=== PATIENT | female | born 1950 | race Caucasian/White ===

== ENCOUNTER → 2017-11-08 | Outpatient (CLI) | payer OTHER | PROVIDERS: ATTEND Physician Assistant | DX: M24.851 Other specific joint derangements of right hip, not elsewhere classified (principal); M24.852 Other specific joint derangements of left hip, not elsewhere classified ==

== ENCOUNTER → 2018-01-11 | Outpatient (CLI) | payer OTHER | LOC: BHFA 14:00 | PROVIDERS: ATTEND Internal Medicine Cardiovascular Disease | DX: Z01.818 Encounter for other preprocedural examination (principal) ==

== ENCOUNTER → 2018-01-12 | Outpatient (CLI) | payer OTHER | LOC: FIMAGING 16:13 | PROVIDERS: ATTEND Orthopaedic Surgery | DX: Z01.818 Encounter for other preprocedural examination (principal); M16.12 Unilateral primary osteoarthritis, left hip ==

== ENCOUNTER 2018-02-04 07:54 | Inpatient (IN) | payer OTHER ==
--- NOTE | 2018-02-04 07:14 | PDHPUP ---
History & Physical Update H&P update statement: This history and physical update is based on an assessment of the patient which was completed after admission or registration (within 24 hours), but prior to the surgery/procedure. H&P update: H&P reviewed & patient examined, no change in patient's condition since H&P completed
[~2018-02-04 07:54] MED LIST: ROPIVACAINE 0.2% 80 MG, EPINEPHrine 0.2 MG, KETOROLAC TROMETHAMINE 30 MG in SYRINGE 0 ML IU ONE; TRANEXAMIC ACID 3,000 MG in NS (SYRINGE) 50 ML IRR ONE; TRANEXAMIC ACID 3,000 MG/50 ML BAG IRR ONE
[2018-02-04] MEDS ORDERED: FAMOTIDINE 20 MG TAB PO ONE (08:19)
[2018-02-04] MEDS ORDERED: DEXAMETHASONE 4 MG/ML VIAL IVP ONE (08:19)
[2018-02-04] MEDS ORDERED: ACETAMINOPHEN 325 MG TAB PO ONE (08:19)
[2018-02-04] MEDS ORDERED: ceFAZolin 2 GM/DEXTROSE 100 ML IV ONE (08:19)
--- NOTE | 2018-02-04 08:55 | PDANEPAE ---
ANE Past Medical History - Cardiovascular History Hx Hypertension: No Hx Arrhythmias: No Hx Chest Pain: No Hx Coronary Artery / Peripheral Vascular Disease: No Hx CHF / Valvular Disease: No Hx Palpitations: No Cardiovascular History Comment: RBBB. Dilated aortic root (<5cm) - Pulmonary History Hx COPD: No Hx Asthma/Reactive Airway Disease: No Hx Recent Upper Respiratory Infection: No Hx Oxygen in Use at Home: No Hx Sleep Apnea: No Sleep Apnea Screening Result - Last Documented: Negative - Neurologic History Hx Cerebrovascular Accident: No Hx Seizures: No Hx Dementia: No - Endocrine History Hx Diabetes: No Hypothyroid: No Hyperthyroid: No Obesity: no - Renal History Hx Renal Disorders: No - Liver History Hx Hepatic Disorders: No - Neurological & Psychiatric Hx Hx Neurological and Psychiatric Disorders: No - Cancer History Hx Cancer: No - Congenital Disorder History Hx Congenital Disorders: Yes Congenital History Comment: RBBB - GI History GERD: no Hx Gastrointestinal Disorders: No - Other Health History Other Health History: GLAUCOMA - Chronic Pain History Chronic Pain: Yes (BILAT HIPS,LOWER BACK) - Surgical History Prior Surgeries: none in last 10yrs ANE Review of Systems Review of Systems: - Exercise capacity Exercise capacity: >=4 METS METS (RN): 5 METS ANE Patient History - Allergies Allergies/Adverse Reactions: No Known Allergies Allergy (Verified 01/14/18 10:12) - Home Medications Home Medications: Acetaminophen [Tylenol 325mg (*)] 325 - 650 mg PO Q6 PRN 01/13/18 [Last Taken 09:00] Latanoprost 0.005% [Xalatan 0.005% (*)] 1 drops EACHEYE HS 01/13/18 [Last Taken 02/03/18 22:00] Meloxicam [Mobic 15 mg] 15 mg PO DAILY 01/13/18 [Last Taken 2 Weeks Ago ~] Multivitamins [Multivitamin (*)] 1 each PO DAILY 01/13/18 [Last Taken 2 Weeks Ago ~01/21/18] - NPO status NPO Since - Liquids (Date): 02/04/18 NPO Since - Liquids (Time): 07:00 NPO Since - Solids (Date): 02/03/18 NPO Since - Solids (Time): 22:00 - Anes Hx Anes Hx: post operative nausea and vomiting - Smoking Hx Smoking Status: Never smoked Marijuana use: No - Alcohol Use Alcohol Use: Occasionally - Family Anes Hx Family Anes Hx: neg - N/A Family Hx Anesthesia Complications: father had vomiting issues ANE Labs/Vital Signs - Vital Signs Blood Pressure: 135/94 Heart Rate: 72 Respiratory Rate: 16 O2 Sat (%): 94 Height: 172.72 cm Weight: 83.915 kg ANE Physical Exam - Airway Neck exam: FROM Mallampati Score: Class 2 Mouth exam: normal dental/mouth exam - Pulmonary Pulmonary: no respiratory distress, no rales or rhonchi, clear to auscultation - Cardiovascular Cardiovascular: regular rate and rhythym, no murmur, rub, or gallop - ASA Status ASA Status: II ANE Anesthesia Plan Anesthesia Plan: MAC, spinal Total IV Anesthesia: No
[2018-02-04] MEDS ORDERED: LR 1,000 ML IV ONE (08:57)
[2018-02-04] MEDS ORDERED: fentaNYL 100 MCG/2 ML INJ ONE (09:31)
[2018-02-04] MEDS ORDERED: PROPOFOL/EMULSION 500 MG/50 ML BOTTLE IV ONE ×2 (09:31→10:25)
[2018-02-04] MEDS ORDERED: LIDOCAINE 2% 5 ML SDV ONE (09:47)
[2018-02-04] MEDS ORDERED: ePHEDrine SULFATE 25 MG/5 ML SYR ONE (10:12)
[2018-02-04] MEDS ORDERED: NALOXONE HCL 0.4 MG/ML INJ IVP PRN (10:21)
[2018-02-04] MEDS ORDERED: LR 500 ML IV PRN (10:21)
[2018-02-04] MEDS ORDERED: PROMETHAZINE HCL 25 MG/ML INJ IVP PRN ×2 (10:21→11:04)
[2018-02-04] MEDS ORDERED: ACETAMINOPHEN 500 MG TAB PO PRN (10:21)
[2018-02-04] MEDS ORDERED: PHENYLEPHRINE HCL 100 MCG/ML SYR IVP PRN (10:21)
[2018-02-04] MEDS ORDERED: fentaNYL 100 MCG/2 ML INJ IVP PRN (10:21)
[2018-02-04] MEDS ORDERED: oxyCODONE IR 5 MG TAB PO PRN (10:21)
[2018-02-04] MEDS ORDERED: ONDANSETRON 4 MG/2 ML VIAL IVP PRN ×2 (10:21→11:04)
[2018-02-04] MEDS ORDERED: HYDROCODONE/APAP 5/325 TAB PO PRN (10:21)
[2018-02-04] MEDS ORDERED: PHENYLEPHRINE HCL 100 MCG/ML SYR ONE (10:31)
[2018-02-04] MEDS ORDERED: MAGNESIUM HYDROXIDE 30 ML UDCUP PO PRN (11:04)
[2018-02-04] MEDS ORDERED: ONDANSETRON DISINTEGRATING 4 MG TAB PO PRN (11:04)
[2018-02-04] MEDS ORDERED: BISACODYL 10 MG SUPP PR PRN (11:04)
[2018-02-04] MEDS ORDERED: DIPHENOXYLATE/ATROPINE LOMOTIL 1 TAB PO PRN (11:04)
[2018-02-04] MEDS ORDERED: diphenhydrAMINE 25 MG CAP PO PRN (11:04)
[2018-02-04] MEDS ORDERED: LACTULOSE 20 GM/30 ML UDCUP PO PRN (11:04)
[2018-02-04] MEDS ORDERED: PROMETHAZINE HCL 25 MG SUPPR PR PRN (11:04)
[2018-02-04] MEDS ORDERED: METOCLOPRAMIDE 10 MG/2 ML VIAL IVP PRN (11:04)
[2018-02-04] MEDS ORDERED: POLYETHYLENE GLYCOL 3350 17 GM PKT PO PRN (11:04)
[2018-02-04] MEDS ORDERED: TEMAZEPAM 15 MG CAP PO PRN (11:04)
--- NOTE | 2018-02-04 11:04 | POSTOPPROG ---
Post Op Note Date of Operation: 02/04/18 Surgeon: Lino Espana Top Taper Machine: lam espana Anesthesiologist: dr. perales Anesthesia: Spinal Pre-op Diagnosis: left hip OA Post-op Diagnosis: same Indication: left hip pain Procedure: L JOCELINE ant approach Findings: severe hip OA Inf/Abcess present in the surg proc area at time of surgery?: No EBL: 100-500
[2018-02-04] MEDS ORDERED: LR 1,000 ML IV SCH (11:30)
[2018-02-04] MEDS ORDERED: oxyCODONE IR 5 MG TAB ONE (11:56)
--- NOTE | 2018-02-04 12:42 | POSTANESTH ---
Post Anesthetic Evaluation Cardiovascular Status: Normal, Stable Respiratory Status: Normal, Stable Level of Consciousness/Mental Status: Can Participate in Eval Pain Control: Adequate, Prn Tx Ordered Nausea/Vomiting Control: Adequate, Prn Tx Ordered Complications Possibly Related to Anesthesia: None Noted
[2018-02-04] MEDS: ACETAMINOPHEN 325 MG TAB PO SCH ×2 (13:34→17:21)
--- NOTE | 2018-02-04 13:46 | PDMN ---
Medical Necessity Medical necessity: [facility] IP only surgery; cpt 06257 L JOCELINE ([id number])
[2018-02-04] MEDS: ceFAZolin 2 GM/DEXTROSE 100 ML IV SCH (15:38)
[2018-02-04] MEDS: CYCLOBENZAPRINE 10 MG TAB PO PRN (15:38)
[2018-02-04] MEDS ORDERED: LATANOPROST 0.005% 2.5 ML OPHT DROPS EACHEYE SCH (21:00)
[2018-02-04] MEDS: SENNOSIDES/DOCUSATE SODIUM TAB PO SCH (21:32)
[2018-02-04] MEDS: oxyCODONE IR 5 MG TAB PO PRN (21:33)
[2018-02-04] MEDS: ASPIRIN 81 MG CHEWABLE TAB PO SCH (21:33)
[2018-02-04] MEDS: FAMOTIDINE 20 MG TAB PO SCH (21:34)
[2018-02-05] MEDS: CYCLOBENZAPRINE 10 MG TAB PO PRN (00:36)
[2018-02-05] MEDS: ACETAMINOPHEN 325 MG TAB PO SCH ×2 (00:36→05:11)
[2018-02-05] MEDS: ceFAZolin 2 GM/DEXTROSE 100 ML IV SCH (00:36)
[2018-02-05] MEDS: oxyCODONE IR 5 MG TAB PO PRN ×2 (05:12→10:09)
[2018-02-05] MEDS: ASPIRIN 81 MG CHEWABLE TAB PO SCH (08:11)
[2018-02-05] MEDS: SENNOSIDES/DOCUSATE SODIUM TAB PO SCH (08:11)
[2018-02-05] MEDS: FAMOTIDINE 20 MG TAB PO SCH (08:11)
[2018-02-05 09:17] VITALS: BP 116/66
--- NOTE | 2018-02-05 10:51 | GOP ---
[f rep st] OPERATIVE REPORT DATE OF OPERATION: 02/04/2018 SURGEON: Ban Buchanan MD BRAND MARKETING MANAGER: NENITA Clifton ANESTHESIA: Spinal. PREOPERATIVE DIAGNOSIS: Left hip osteoarthrosis. POSTOPERATIVE DIAGNOSIS: Left hip osteoarthrosis. PROCEDURE PERFORMED: Left total hip arthroplasty. FINDINGS: ESTIMATED BLOOD LOSS: 200 cc. INDICATIONS: The patient has progressively worsening arthritis of the hip which has failed medical m anagement. The patient understands the treatment options including continued non-operative care and has selected surgical intervention. The patient has decided to undergo total hip arthroplasty via th e direct anterior approach, understanding the risks of the procedure including, but not limited to, n eurovascular injury, infection, persistent pain, component wear and loosening, deep venous thrombosis , pulmonary embolism, limb length inequality, hip instability (including dislocation), and intra-oper ative fractures. DESCRIPTION OF PROCEDURE: After proper identification of the patient including verification and brittany ing the surgical site, the patient was brought to the operating room and placed in the supine positio n. All bony prominences were well padded. Anesthesia was induced without complication and intraveno us prophylactic antibiotics were administered prior to skin incision. The operative leg was placed in the Trumpf Arch table extension and the well leg in a Yellofin leg ho lder. The patient was prepped and draped in the usual sterile fashion. The C-arm was draped for int ra-operative fluoroscopy to check acetabular position, femoral component position including leg lengt h and femoral offset. Attention was then drawn to surgical exposure of the hip. An incision was made with a #10 [place] r blade starting 3 cm lateral and 3 cm distal to the anterior superior iliac spine measuring 8-10 cm and coursing distally toward the greater trochanter. The skin and subcutaneous tissues were divided sharply down to the fascia rosa elena. The fascia rosa elena was incised in line with the skin incision exposing the underlying tensor fascia rosa elena muscle. The muscle was bluntly elevated from the fascia and the f irst extracapsular Cobra retractor was placed laterally at the junction of the superior femoral neck and greater trochanter. The lateral femoral circumflex vessels were identified, cauterized, and divi ded with the Aquamantys bipolar cautery. The deep investing fascia of the TFL was divided to allow p neelima mobilization of the muscle preventing damage during the retraction. The reflected head of the rectus femoris muscle was elevated off the anterior hip capsule and a medial Cobra retractor was plac ed just proximal to the lesser trochanter. The anterior capsulotomy was made sharply from the superolateral acetabulum to the saddle junction of the superior femoral neck and greater trochanter, then coursing inferomedial towards the lesser troc hanter. The retractors were then placed in the intracapsular position for femoral neck osteotomy. C orresponding to pre-operative templating, the osteotomy was made with the oscillating saw carefully p rotecting the greater trochanter and soft tissues. The femoral head was removed from the acetabulum with a corkscrew and confirmed to be severely arthritic with exposed bone, deformity and osteophytes. Similar findings were confirmed in the acetabulum. The Arch table extension was then placed in 40 degrees external rotation. Attention was then drawn to the acetabular preparation. After placement of the anterior and posterio r Cobra retractors outside the labrum and intracapsular, the circumferential labrum was removed sharp ly. The foveal contents were then removed and hemostasis obtained with cautery. The first reamer selected was sized using the removed femoral head. Reaming began with medialization and then commenced in 2 mm increments at 45 degrees of abduction and 15 degrees of anteversion using fluoroscopic navigation. Reaming ceased 1 mm less than the definitive acetabular component and madhuri esponded to the pre-operative templating. The final acetabular component was inserted using fluorosc opy to achieve proper orientation yielding excellent purchase and stability in the acetabulum. The f inal acetabular liner was then placed and its seating confirmed. Attention was then turned to the femur. The Arch table extension was placed in extension and adducti on, delivering the osteotomized femoral neck into the wound. A 2-pronged femoral elevator was placed at the calcar and another at the tip of the greater trochanter. The posterolateral capsule was rele ased with cautery allowing mobilization of the femur lateral and anterior for preparation. The exter nal rotators were visualized and preserved. A curette and rongeur were used to open the starting poi nt for broaching. Serial broaching started with the #0 broach and ended with the broach that exhibit ed excellent fit in the proximal femur. A change in pitch during mallet strikes was accompanied by t he inability to advance the broach any further. The trial reduction was performed and fluoroscopic n avigation was utilized to check limb length. Adjustments were made to equalize limb length according ly. After the final trials were accepted they were removed and the wound was copiously lavaged. The femo ral component was seated to the same depth as the final broach and the femoral head was impacted onto the clean trunnion. The hip was then reduced for the final time and once more fluoroscopy was used to check that limb length equality was achieved. The wound was irrigated and closed in layers, the fascia rosa elena with 2-0 Quill, the subcutaneous tissue with 2-0 Quill, and the skin with Dermabond. Sterile dressings were applied. Final sharps and spon ge counts were accurate. The patient was then transferred to a hospital bed and brought to the [facility] room in stable condition. IMPLANTS: Accolade II size 5 at 132. Acetabular component is 52 mm Trident 2. Liner is a Trident X 3, 36 mm. Head is a Biolox Delta 36 mm, +0. /[id number]/MODL
--- NOTE | 2018-02-05 10:55 | ASMTCMCOM ---
CM Note CM Note Notes: Pt is s/p JOCELINE, PT recommending home w/spouse and f/u w/out pt rehab. No CM needs at this time. Date Signed: 02/05/2018 10:54 AM Electronically Signed By:Shauna Hernandez RN
--- NOTE | 2018-02-05 11:12 | SOAPPROG ---
SOAP Progress Note Assessment/Plan: Assessment: Flavia is doing well POD 1 s/p L JOCELINE pain is well controlled on oral pain meds VTE ppx: recommend ASA 81 mg BID anemia: level expected initially postop. asymptomatic D/C planning: d/c to home pending release from PT Plan: 02/05/18 11:10 Subjective: Flavia is doing well, denies SOB, chest pain and N/V. Objective: Vital Signs Temp Pulse Resp BP Pulse Ox 36.6 C 67 18 116/66 96 02/05/18 08:00 02/05/18 08:00 02/05/18 08:00 02/05/18 08:00 02/05/18 08:00 Laboratory Results 02/05/18 04:27 02/04/18 02/05/18 02/06/18 05:59 05:59 05:59 Intake Total 1950 Output Total 2800 Balance -850 LLE: incision dressing is clean and dry, NVI, +pf/df ICD10 Worksheet Patient Problems: Problems Problem Status Onset Primary localized osteoarthritis of left hip Acute
--- NOTE | 2018-02-10 11:06 | GDS ---
[f rep st] DISCHARGE SUMMARY ADMISSION DIAGNOSIS: Left hip osteoarthritis. DISCHARGE DIAGNOSIS: Left hip osteoarthritis. PROCEDURE: Left total hip arthroplasty. VTE PROPHYLAXIS: Recommend aspirin 81 mg twice a day for 4 weeks. BRIEF DESCRIPTION OF HOSPITAL STAY: Patient was admitted for an elective joint arthroplasty. The pa tere tolerated the procedure well and has passed physical therapy. The patient was given appropriat e antibiotic prophylaxis and venous thromboembolism prophylaxis. The patient's pain was well control led on oral pain medication, patient was holding down food, and had urinated. Decision was made to d ischarge the patient. The patient was given post-operative prescriptions pre-operatively. PLAN: Follow up as scheduled at Dr. Buchanan's office, February 28 at 12:45. /[id number]/MODL
== END 2018-02-05 12:03 | disposition home or self-care (01) | DRG 470 ==
LOC: F3N 07:54
PROVIDERS: ADMIT Orthopaedic Surgery; ATTEND Orthopaedic Surgery
PROC: 0SRB04Z Replacement of Left Hip Joint with Ceramic on Polyethylene Synthetic Substitute, Open Approach (ICD-10-PCS; principal; 2018-02-04 10:15)
DX: M16.12 Unilateral primary osteoarthritis, left hip (principal)
CPT/HCPCS: 97116-GP; 97161-GP; 97165-GO; 97530-GP; G8978-GP-CK; G8979-GP-CI; G8987-GO-CI; G8988-GO-CI; G8989-GO-CI; J0171; J0690; J1100; J1885; J2370; J2704; J2795; J3010

== ENCOUNTER 2018-06-17 11:00 | Inpatient (IN) | payer OTHER ==
--- NOTE | 2018-06-17 07:17 | PDGENHP ---
History and Physical History and Physical: Print Patient Name SARAH MARIE (68yo, F) ID# [id number] Appt. Date/Time 05/30/2018 12: 30PM 1950 Service Dept. MAIN OFFICE Provider BRITANY BUCHANAN PA-C Insurance Med Primary: [place] Insurance # : [id number] Med Secondary: [place]PP[place] Insurance # : [id number] Policy/Group # : [id number] Prescription: DSTPSDIR - Member is eligible. details Chief Complaint Right CBB_discuss right hip surgery pt is here today to discuss right hip surgery. pt states the pain is worse, and sitting makes it worse. Patient's Care Team Primary Care Provider: REDD VANEGAS MD: [id number] [place] [address], Ph [phone], Patient's Pharmacies [id number] ([place]): [address] [facility] [address], Ph [phone], Vitals Ht: 5 ft 9 in 05/30/2018 01:05 pm Wt: 190 lbs 05/30/2018 01:05 pm BMI: 28.1 05/30/2018 01:05 pm BP: 120/92 sitting L arm 05/30/2018 01:07 pm Pulse: 79 bpm 05/30/2018 01:07 pm Allergies Reviewed Allergies NKDA Medications Reviewed Medications celecoxib 200 mg capsule take 2 capsules the night before surgery with dinner, then one tab once a day with food for 3 weeks 05/30/18 prescribed Britany Buchanan PA-C Centrum Once PO daily 01/20/18 entered Janice Sampson Crestor 5 mg tablet Take 1 tablet(s) every day by oral route. 05/30/18 entered Aniya Buchanan latanoprost 0.005 % eye drops 09/10/17 filled [facility] lisinopril 5 mg tablet 04/05/18 filled [facility] meloxicam 15 mg tablet TAKE ONE TABLET BY MOUTH ONCE DAILY 04/14/18 renewed Latha Bruce PA-C Tylenol 2-3 tablets PRN 06/21/18 entered Janice Sampson Vaccines None recorded. Problems Reviewed Problems No known problems Family History Reviewed Family History Mother - Hypertensive disorder - Hypercholesterolemia - Arthritis (onset age: 50) - Problem Father - Arthritis (onset age: 50) - Disorder of back (onset age: 70) - Malignant neoplastic disease (onset age: 70) ( age: 84) - Osteoarthritis - Hypertensive disorder Social History Reviewed Social History Smoking Status: Never smoker Non-smoker Occupation: RN, MS, [employer] DEVELOPMENT MANAGER, [employer] Chewing tobacco: none Alcohol intake: Occasional Alcohol-years of use: 35 Caffeine intake: Moderate Exercise level: Moderate Sporting activities: Walking, biking, gardening, Hand Dominance: Right Education: Post Graduate Live alone or with others?: with others Surgical History Reviewed Surgical History Total hip arthroplasty - 02/04/2018 Orthopaedic Surgery - 08/02/2017 Orthopaedic Surgery - 03/16/1996 PAYROLL BENEFITS ADMINISTRATOR History (not configured) Obstetric History None recorded. Past Pregnancies None recorded. Past Medical History Reviewed Past Medical History Arthritis: Y Heart Problems: Y Screening None recorded. [facility] hip HPI Reported by patient. Location of symptoms: Right hip Symptoms: Pain; Decreased ROM Severity: severe Duration: many years Onset: chronic Exacerbated by: Walking; Physical activity Alleviated by: activity modifications; NSAIDs; PT/OT Associated Symptoms: no numbness Previous Surgery: surgical procedure: (L JOCELINE) Prior studies: radiographs Previous Injections: none Previous PT: did not help Work Related: no Notes: patient had many questions regarding surgery. All were addressed today. ROS ROS as noted in the HPI Physical Exam Patient is a 68-year-old female. Constitutional: General Appearance: healthy-appearing, NAD, and normal body habitus. Psychiatric: Orientation: oriented to time, place, and person. Mood and Affect: normal affect and mood and active and alert. Gait and Station: Appearance: ambulating with no assistive devices and antalgic gait. Cardiovascular System: Arterial Pulses Right: dorsalis pedis pulse normal and posterior tibialis pulse normal. Arterial Pulses Left: dorsalis pedis pulse normal and posterior tibialis pulse normal. Edema Right: none. Edema Left: none. Varicosities Right: capillary refill test normal and no varicosities. Varicosities Left: capillary refill test normal and no varicosities. Lymph Nodes: Inspection/Palpation Right: no popliteal LAD. Inspection/Palpation Left: no popliteal LAD. Hip/Pelvis Appearance: Inspection: left leg shorter (0.5 ) cm. Hips: Bony Palpation Right: no tenderness of the SI joint or the greater trochanter. Soft Tissue Palpation Right: no tenderness of the hip flexor muscles , the hip adductor muscles, or the piriformis. Active Range of Motion Right: limited, flexion (105 deg.), internal rotation (5 deg.), and external rotation ( 45 deg.). Passive Range of Motion Right: pain elicited by motion. Strength Right : normal 5/5. Strength Left: normal 5/5. Skin: Right Lower Extremity: normal. Left Lower Extremity: normal. Neurologic: Sensation on the Right: T12 normal, L1 normal, L2 normal, L3 normal , and L4 normal. Sensation on the Left: T12 normal, L1 normal, L2 normal, L3 normal, and L4 normal. Heart Rate And Rhythm (normal) heart rate and rhythm. Lungs respirations unlabored. Assessment / Plan Right hip OA Previous hip xrays were reviewed today revealing severe DJD Discussed operative and non-operative interventions for diagnosis of hip arthritis with patient. Recommend Right JOCELINE for treatment. Discussed risks and benefits of operative intervention including but not limited to bleeding, infection, need for further surgery, blood clots, blood clots going to the lungs and rare perioperative complications including stroke, heart attack and . We also discussed risk for dislocation, change in leg length, fracture and need for further surgery. Patient understands risks and wishes to proceed. Informed consent was obtained today Postoperative medications were written today including ASA for VTE prophylaxis postop Right JOCELINE scheduled received PCP letter and [employer] barista letters, moderate risk. cards recommends telemetry labs were drawn at Dr. Vanegas, PCP letter comorbidities: mild dilation of aortic root, HTN, hyperlipidemia Patient was given a hard copy of BP Beneficiary Notification Letter at today' s appointment. 1. Acute postoperative pain G89.18: Other acute postprocedural pain 2. Prophylactic anticoagulation given Z76.89: Persons encountering health services in other specified circumstances celecoxib 200 mg capsule - take 2 capsules the night before surgery with dinner , then one tab once a day with food for 3 weeks Qty: 23 capsule(s) Refills: 0 Pharmacy: [facility] # [id number] Note to Pharmacy: no refills unless patient discusses with provider first 3. Localized, primary osteoarthritis M19.91: Primary osteoarthritis, unspecified site M16.11: Unilateral primary osteoarthritis, right hip Return to Office Cedrick Buchanan M.D. for Surgery 90 at Surgery on 06/17/2018 at 02:15 PM Britany Buchanan PA-C for Surgery 90 at Surgery on 06/17/2018 at 02:15 PM Britany Buchanan PA-C for Post Op Visit at MAIN OFFICE on 07/07/2018 at 02:00 PM Cedrick Buchanan M.D. for Post Op Visit at MAIN OFFICE on 07/28/2018 at 02 :00 PM Cedrick Buchanan M.D. for Post Op Visit at MAIN OFFICE on 09/08/2018 at 02 :00 PM Encounter Sign-Off Encounter signed-off by Britany Buchanan PA-C, 05/31/2018. Encounter performed and documented by Britany Buchanan PA-C Encounter reviewed & signed by Britany Buchanan PA-C on 05/31/2018 at 9:58pm There is not enough information to calculate an E&M code
[~2018-06-17 11:00] MED LIST changes: -TRANEXAMIC ACID 3,000 MG/50 ML BAG IRR ONE
[2018-06-17] MEDS ORDERED: TRANEXAMIC ACID 3,000 MG/50 ML BAG IRR ONE (11:21)
[2018-06-17] MEDS ORDERED: FAMOTIDINE 20 MG TAB PO ONE (12:27)
[2018-06-17] MEDS ORDERED: ceFAZolin 2 GM/DEXTROSE 100 ML IV ONE (12:27)
[2018-06-17] MEDS ORDERED: DEXAMETHASONE 4 MG/ML VIAL IVP ONE (12:27)
[2018-06-17] MEDS ORDERED: LR 1,000 ML IV ONE (12:27)
[2018-06-17] MEDS ORDERED: ACETAMINOPHEN 325 MG TAB PO ONE (12:27)
[2018-06-17] MEDS ORDERED: LIDOCAINE 1% 2 ML INJ ID PRN (12:31)
[2018-06-17] MEDS ORDERED: LIDOCAINE 1% 2 ML INJ ONE (12:33)
--- NOTE | 2018-06-17 12:37 | POSTANESTH ---
Post Anesthetic Evaluation Cardiovascular Status: Normal, Stable Respiratory Status: Normal, Stable Level of Consciousness/Mental Status: Can Participate in Eval, Mildly Sleepy, Arousable Pain Control: Adequate, Prn Tx Ordered Nausea/Vomiting Control: Adequate, Prn Tx Ordered Complications Possibly Related to Anesthesia: None Noted (Moving L toes, but not R leg yet.)
--- NOTE | 2018-06-17 12:45 | PDANEPAE ---
ANE History of Present Illness 68 yo female for R JOCELINE. ANE Past Medical History - Cardiovascular History Hx Hypertension: No Hx Arrhythmias: No Hx Chest Pain: No Hx Coronary Artery / Peripheral Vascular Disease: No Hx CHF / Valvular Disease: No Hx Palpitations: No Cardiovascular History Comment: RBBB. Dilated aortic root (<5cm) - Pulmonary History Hx COPD: No Hx Asthma/Reactive Airway Disease: No Hx Recent Upper Respiratory Infection: No Hx Oxygen in Use at Home: No Hx Sleep Apnea: No Sleep Apnea Screening Result - Last Documented: Negative - Neurologic History Hx Cerebrovascular Accident: No Hx Seizures: No Hx Dementia: No - Endocrine History Hx Diabetes: No Hypothyroid: No Hyperthyroid: No Obesity: no - Renal History Hx Renal Disorders: No - Liver History Hx Hepatic Disorders: No - Neurological & Psychiatric Hx Hx Neurological and Psychiatric Disorders: No - Cancer History Hx Cancer: No - Congenital Disorder History Hx Congenital Disorders: No Congenital History Comment: RBBB - GI History Hx Gastrointestinal Disorders: No - Other Health History Other Health History: DRY EYES. GLAUCOMA - Chronic Pain History Chronic Pain: Yes (RT HIP,DOWN FRONT OF RT LEG) - Surgical History Prior Surgeries: LT TOTAL HIP 01/2018 ANE Review of Systems Review of Systems: - Exercise capacity METS (RN): 6 METS ANE Patient History - Allergies Allergies/Adverse Reactions: No Known Allergies Allergy (Verified 06/17/18 12:32) - Home Medications Home Medications: Latanoprost 0.005% [Xalatan 0.005% (*)] 1 drops EACHEYE HS 01/13/18 [Last Taken 06/16/18 21:00] Acetaminophen [Tylenol] 650 mg PO DAILY PRN 05/27/18 [Last Taken Unknown] Lisinopril [Zestril 5 mg (*)] 5 mg PO DAILY 05/27/18 [Last Taken 06/16/18 07:00] Meloxicam 15 mg PO DAILY 05/27/18 [Last Taken 06/10/18 07:00] Multivitamins [Multivitamin (*)] 1 each PO DAILY 05/27/18 [Last Taken 06/03/18 07:00] - Anes Hx Anes Hx: no prior problems (after March L JOCELINE. Remote h/o issues after GA.) - Smoking Hx Smoking Status: Never smoked - Alcohol Use Alcohol Use: Occasionally (4/week) - Family Anes Hx Family Hx Anesthesia Complications: father had vomiting issues ANE Labs/Vital Signs - Vital Signs Height: 175.26 cm Weight: 83.915 kg ANE Physical Exam - Airway Neck exam: FROM Mallampati Score: Class 2 Mouth exam: normal dental/mouth exam - Pulmonary Pulmonary: clear to auscultation - Cardiovascular Cardiovascular: regular rate and rhythym - ASA Status ASA Status: II ANE Anesthesia Plan Anesthesia Plan: spinal
[2018-06-17] MEDS ORDERED: fentaNYL 100 MCG/2 ML INJ ONE (12:55)
[2018-06-17] MEDS ORDERED: PROPOFOL/EMULSION 500 MG/50 ML BOTTLE IV ONE (12:55)
[2018-06-17] MEDS ORDERED: LIDOCAINE 2% 2 ML INJ ONE (12:55)
[2018-06-17] MEDS ORDERED: ePHEDrine SULFATE 25 MG/5 ML SYR ONE (13:37)
[2018-06-17] MEDS ORDERED: NALOXONE HCL 0.4 MG/ML INJ IVP PRN (14:04)
[2018-06-17] MEDS ORDERED: LR 500 ML IV PRN (14:04)
[2018-06-17] MEDS ORDERED: ONDANSETRON 4 MG/2 ML VIAL IVP PRN ×2 (14:04→14:15)
[2018-06-17] MEDS ORDERED: ALBUTEROL 3 ML DEYVIAL IH PRN (14:04)
[2018-06-17] MEDS ORDERED: fentaNYL 100 MCG/2 ML INJ IVP PRN (14:04)
[2018-06-17] MEDS ORDERED: ACETAMINOPHEN 500 MG TAB PO PRN (14:04)
[2018-06-17] MEDS ORDERED: oxyCODONE IR 5 MG TAB PO PRN (14:04)
[2018-06-17] MEDS ORDERED: POLYETHYLENE GLYCOL 3350 17 GM PKT PO PRN (14:15)
[2018-06-17] MEDS ORDERED: CYCLOBENZAPRINE 10 MG TAB PO PRN (14:15)
[2018-06-17] MEDS ORDERED: PROMETHAZINE HCL 25 MG/ML INJ IVP PRN (14:15)
[2018-06-17] MEDS ORDERED: TEMAZEPAM 15 MG CAP PO PRN (14:15)
[2018-06-17] MEDS ORDERED: LACTULOSE 20 GM/30 ML UDCUP PO PRN (14:15)
[2018-06-17] MEDS ORDERED: METOCLOPRAMIDE 10 MG/2 ML VIAL IVP PRN (14:15)
[2018-06-17] MEDS ORDERED: DIPHENOXYLATE/ATROPINE LOMOTIL 1 TAB PO PRN (14:15)
[2018-06-17] MEDS ORDERED: BISACODYL 10 MG SUPP PR PRN (14:15)
[2018-06-17] MEDS ORDERED: diphenhydrAMINE 25 MG CAP PO PRN (14:15)
[2018-06-17] MEDS ORDERED: MAGNESIUM HYDROXIDE 30 ML UDCUP PO PRN (14:15)
[2018-06-17] MEDS ORDERED: PROMETHAZINE HCL 25 MG SUPPR PR PRN (14:15)
[2018-06-17] MEDS ORDERED: ONDANSETRON DISINTEGRATING 4 MG TAB PO PRN (14:15)
[2018-06-17] MEDS ORDERED: LR 1,000 ML IV SCH (14:30)
--- NOTE | 2018-06-17 16:02 | PDMN ---
Medical Necessity Medical necessity: [facility] IP only surgery; cpt 77549 R JOCELINE
[2018-06-17] MEDS: ACETAMINOPHEN 325 MG TAB PO SCH ×2 (17:14→23:37)
[2018-06-17] MEDS ORDERED: LATANOPROST 0.005% 2.5 ML OPHT DROPS EACHEYE SCH (21:00)
[2018-06-17] MEDS: ceFAZolin 2 GM/DEXTROSE 100 ML IV SCH (22:02)
[2018-06-17] MEDS: FAMOTIDINE 20 MG TAB PO SCH (22:02)
[2018-06-17] MEDS: ASPIRIN 81 MG CHEWABLE TAB PO SCH (22:02)
[2018-06-17] MEDS: SENNOSIDES/DOCUSATE SODIUM TAB PO SCH (22:03)
[2018-06-18] MEDS: oxyCODONE IR 5 MG TAB PO PRN ×2 (03:51→09:20)
[2018-06-18] MEDS: ACETAMINOPHEN 325 MG TAB PO SCH (05:43)
[2018-06-18] MEDS: ceFAZolin 2 GM/DEXTROSE 100 ML IV SCH (05:44)
[2018-06-18 08:18] VITALS: BP 102/56
[2018-06-18] MEDS ORDERED: LISINOPRIL 5 MG TAB PO SCH (09:00)
[2018-06-18] MEDS: FAMOTIDINE 20 MG TAB PO SCH (09:19)
[2018-06-18] MEDS: SENNOSIDES/DOCUSATE SODIUM TAB PO SCH (09:19)
[2018-06-18] MEDS: ASPIRIN 81 MG CHEWABLE TAB PO SCH (09:19)
--- NOTE | 2018-06-18 11:08 | SOAPPROG ---
SOAP Progress Note Assessment/Plan: Assessment: Patient is doing well POD 1 s/p R JOCELINE Pain management: pain is well controlled on oral pain meds. VTE ppx: recommend aspirin 81 BID daily for 4 weeks, cont EZRA and SCDs Anemia: level is expected initially postop. Asymptomatic. Continue to monitor D/c planning: patient has done better than anticipated. BP have been well controlled, mild pain, patient is eager for discharge to home due to snow. d/c to home today pending release from PT Plan: 06/18/18 11:06 Subjective: Tony is doing well,denies SOB, chest pain and N/V. eager for discharge Objective: Vital Signs Temp Pulse Resp BP Pulse Ox 37.0 C 62 16 102/56 L 97 06/18/18 08:00 06/18/18 08:00 06/18/18 08:00 06/18/18 08:00 06/18/18 08:00 Laboratory Results 06/18/18 04:36 06/17/18 06/18/18 06/19/18 05:59 05:59 05:59 Intake Total 3700 Output Total 1665 200 Balance 2035 -200 RLE: incision dressing is clean and dry, NVI, +pf/df ICD10 Worksheet Patient Problems: Problems Problem Status Onset Primary localized osteoarthritis of right hip Acute Primary localized osteoarthritis of left hip Acute
--- NOTE | 2018-06-18 11:49 | GDS ---
ADMISSION DIAGNOSIS: Right hip osteoarthritis. DISCHARGE DIAGNOSIS: Right hip osteoarthritis. PROCEDURE: Right total hip arthroplasty. VTE PROPHYLAXIS: Recommend aspirin 81 mg twice daily for 4 weeks. BRIEF DESCRIPTION OF HOSPITAL STAY: Patient was admitted for an elective joint arthroplasty. The delmar carranza tolerated the procedure well and has passed physical therapy. The patient was given appropriat e antibiotic prophylaxis and venous thromboembolism prophylaxis. The patient's pain was well control led on oral pain medication, patient was holding down food, and had urinated. Decision was made to d ischarge the patient. The patient was given post-operative prescriptions pre-operatively. PLAN: Follow up as scheduled in Dr. Buchanan's office on 07/07 at 2 p.m. /[id number]/MODL
--- NOTE | 2018-06-19 11:55 | GOP ---
DATE OF OPERATION: 06/17/2018 SURGEON: Ban Buchanan MD PRECINCT CAPTAIN: NENITA Clifton ANESTHESIA: Spinal. PREOPERATIVE DIAGNOSIS: Right hip osteoarthritis. POSTOPERATIVE DIAGNOSIS: Right hip osteoarthritis. PROCEDURE PERFORMED: Total hip arthroplasty with x-ray. FINDINGS: ESTIMATED BLOOD LOSS: 200 cc. INDICATIONS: The patient has progressively worsening arthritis of the hip which has failed medical m anagement. The patient understands the treatment options including continued non-operative care and has selected surgical intervention. The patient has decided to undergo total hip arthroplasty via th e direct anterior approach, understanding the risks of the procedure including, but not limited to, n eurovascular injury, infection, persistent pain, component wear and loosening, deep venous thrombosis , pulmonary embolism, limb length inequality, hip instability (including dislocation), and intra-oper ative fractures. DESCRIPTION OF PROCEDURE: After proper identification of the patient including verification and brittany ing the surgical site, the patient was brought to the operating room and placed in the supine positio n. All bony prominences were well padded. Anesthesia was induced without complication and intraveno us prophylactic antibiotics were administered prior to skin incision. The operative leg was placed in the Trumpf Arch table extension and the well leg in a Yellofin leg ho lder. The patient was prepped and draped in the usual sterile fashion. The C-arm was draped for int ra-operative fluoroscopy to check acetabular position, femoral component position including leg lengt h and femoral offset. Attention was then drawn to surgical exposure of the hip. An incision was made with a #10 Bard Shyann r blade starting 3 cm lateral and 3 cm distal to the anterior superior iliac spine measuring 8-10 cm and coursing distally toward the greater trochanter. The skin and subcutaneous tissues were divided sharply down to the fascia rosa elena. The fascia rosa elean was incised in line with the skin incision exposing the underlying tensor fascia rosa elena muscle. The muscle was bluntly elevated from the fascia and the f irst extracapsular Cobra retractor was placed laterally at the junction of the superior femoral neck and greater trochanter. The lateral femoral circumflex vessels were identified, cauterized, and divi ded with the Aquamantys bipolar cautery. The deep investing fascia of the TFL was divided to allow p neelima mobilization of the muscle preventing damage during the retraction. The reflected head of the rectus femoris muscle was elevated off the anterior hip capsule and a medial Cobra retractor was plac ed just proximal to the lesser trochanter. The anterior capsulotomy was made sharply from the superolateral acetabulum to the saddle junction of the superior femoral neck and greater trochanter, then coursing inferomedial towards the lesser troc hanter. The retractors were then placed in the intracapsular position for femoral neck osteotomy. C orresponding to pre-operative templating, the osteotomy was made with the oscillating saw carefully p rotecting the greater trochanter and soft tissues. The femoral head was removed from the acetabulum with a corkscrew and confirmed to be severely arthritic with exposed bone, deformity and osteophytes. Similar findings were confirmed in the acetabulum. The Arch table extension was then placed in 40 degrees external rotation. Attention was then drawn to the acetabular preparation. After placement of the anterior and posterio r Cobra retractors outside the labrum and intracapsular, the circumferential labrum was removed sharp ly. The foveal contents were then removed and hemostasis obtained with cautery. The first reamer selected was sized using the removed femoral head. Reaming began with medialization and then commenced in 2 mm increments at 45 degrees of abduction and 15 degrees of anteversion using fluoroscopic navigation. Reaming ceased 1 mm less than the definitive acetabular component and madhuri esponded to the pre-operative templating. The final acetabular component was inserted using fluorosc opy to achieve proper orientation yielding excellent purchase and stability in the acetabulum. The f inal acetabular liner was then placed and its seating confirmed. Attention was then turned to the femur. The Arch table extension was placed in extension and adducti on, delivering the osteotomized femoral neck into the wound. A 2-pronged femoral elevator was placed at the calcar and another at the tip of the greater trochanter. The posterolateral capsule was rele ased with cautery allowing mobilization of the femur lateral and anterior for preparation. The exter nal rotators were visualized and preserved. A curette and rongeur were used to open the starting poi nt for broaching. Serial broaching started with the #0 broach and ended with the broach that exhibit ed excellent fit in the proximal femur. A change in pitch during mallet strikes was accompanied by t he inability to advance the broach any further. The trial reduction was performed and fluoroscopic n avigation was utilized to check limb length. Adjustments were made to equalize limb length according ly. After the final trials were accepted they were removed and the wound was copiously lavaged. The femo ral component was seated to the same depth as the final broach and the femoral head was impacted onto the clean trunnion. The hip was then reduced for the final time and once more fluoroscopy was used to check that limb length equality was achieved. The wound was irrigated and closed in layers, the fascia rosa elena with 2-0 Quill, the subcutaneous tissue with 2-0 Quill, and the skin with Dermabond. Sterile dressings were applied. Final sharps and spon ge counts were accurate. The patient was then transferred to a hospital bed and brought to the [facility] room in stable condition. IMPLANTS: Accolade II size 5, a 127 acetabular component, a Trident II 54 mm, liner is a Trident X3 36 mm, head is a Biolox Delta 26 mm +0. /[id number]/MODL
== END 2018-06-18 12:09 | disposition home or self-care (01) | DRG 470 ==
LOC: F3N 12:09
PROVIDERS: ADMIT Orthopaedic Surgery; ATTEND Orthopaedic Surgery
PROC: 0SR904Z Replacement of Right Hip Joint with Ceramic on Polyethylene Synthetic Substitute, Open Approach (ICD-10-PCS; principal; 2018-06-17 14:00)
DX: M16.11 Unilateral primary osteoarthritis, right hip (principal); I10 Essential (primary) hypertension; E78.5 Hyperlipidemia, unspecified
CPT/HCPCS: 97161-GP; G8978-GP-CI; G8979-GP-CI; G8980-GP-CI; J0171; J0690; J1100; J1885; J2704; J2795; J3010

== ENCOUNTER 2018-08-01 12:53 | Inpatient (IN) | payer OTHER ==
--- NOTE | 2018-08-01 13:02 | EDPHY ---
H & P Stated Complaint: trip and fall down flight of stairs right ankle deformity right hand pain Time Seen by Provider: 08/01/18 13:02 - Personal History Current Tetanus Diphtheria and Acellular Pertussis (TDAP): Yes - Medical/Surgical History Hx Asthma: No Hx Chronic Respiratory Disease: No Hx Diabetes: No Hx Cardiac Disease: No Hx Renal Disease: No Hx Cirrhosis: No Hx Alcoholism: No Hx HIV/AIDS: No Hx Splenectomy or Spleen Trauma: No Other PMH: OA, glaucoma, left hip replacement 2017 - Social History Smoking Status: Never smoked Constitutional: Initial Vital Signs Temperature (C) 36.8 C 08/01/18 12:58 Heart Rate 72 08/01/18 12:58 Respiratory Rate 16 08/01/18 12:58 Blood Pressure 161/94 H 08/01/18 12:58 O2 Sat (%) 97 08/01/18 12:58 O2 Delivery Mode [Post Room Air Procedure 1st] O2 Delivery Mode [Procedural Non-Rebreather Mask 1st] O2 Delivery Mode [.Immediate Non-Rebreather Mask Pre-Procedure] O2 Delivery Mode Room Air O2 (L/minute) [Procedural 1st] 15 Allergies/Adverse Reactions: No Known Allergies Allergy (Verified 06/17/18 12:32) Home Medications: Medication Instructions Recorded Latanoprost 0.005% [Xalatan 0.005% 1 drops EACHEYE HS 01/13/18 (*)] Lisinopril [Zestril 5 mg (*)] 5 mg PO DAILY 05/27/18 Multivitamins [Multivitamin (*)] 1 each PO DAILY 05/27/18 Acetaminophen [Tylenol 325mg (*)] 650 mg PO Q6HRS tab 06/18/18 Aspirin [Aspirin 81mg (*)] 81 mg PO BID tab.chew 06/18/18 Famotidine [Pepcid 20 MG (*)] 20 mg PO BID tab 06/18/18 Polyethylene Glycol 3350 [Miralax 17 gm PO DAILY PRN pkt 06/18/18 17 gm (*)] Sennosides/Docusate Sodium 1 - 2 tab PO BID tab 06/18/18 [Senokot-S] celeCOXIB [Celebrex (*)] 200 mg PO DAILY cap 06/18/18 oxyCODONE IR [Oxycodone Ir (*)] 5 - 10 mg PO Q3HRS PRN tab 06/18/18 oxyCODONE IR [Oxycodone Ir (*)] 5 - 10 mg PO Q6 PRN #20 tab 08/01/18 Medical Decision Making - Diagnostics Imaging Results: Imaging Impressions Ankle X-Ray 08/01/18 13:33 Impression: 1. Status post closed reduction and casting for a trimalleolar fracture. 2. Equivocal avulsion off the base of the fifth metatarsal. As requested, the findings were discussed with Bishop Romeo MD at 14:10, on 08/01/2018. Hand X-Ray 08/01/18 13:34 Impression: Acute angulated and displaced mid shaft fourth metacarpal fracture. Imaging: Discussed imaging studies w/ customer professional Radiologist, I viewed and interpreted images myself ED Course/Re-evaluation: CHIEF COMPLAINT: Fall, right ankle pain, right hand pain HISTORY OF PRESENT ILLNESS: A 68-year-old female who slipped on some stairs while carrying laundry. She has severe pain to her right ankle and deformity. She also has pain in her right hand but seems to have good range of motion. She has had bilateral hip replacements the right hip was replaced 6 or 7 weeks ago she has been doing quite well with that. She has also had a rotator cuff repair of her right shoulder. She has never had any problems with this right ankle. She denies any other injuries. She denies any neck pain head pain or any other symptoms. REVIEW OF SYSTEMS: A comprehensive 10 system review of systems is otherwise negative aside from elements mentioned in the history of present illness and medical decision making. PHYSICAL EXAM: HR, BP, O2 Sat, RR. Temp noted General Appearance: Alert, well hydrated, appropriate, and non-toxic appearing. Head: Atraumatic without scalp tenderness or obvious injury Eyes: Pupils equal, round, reactive to light and accommodation, EOMI, no trauma , no injection. Ears: Clear bilaterally, no perforation, normal landmarks Nose: Atraumatic, no rhinorrhea, clear. Throat: There is no erythema or exudates, no lesions, normal tonsils, mucus membranes moist. Neck: Supple, 2+ carotid upstroke, nontender, no lymphadenopathy. Respiratory: No retractions, no distress, no wheezes, and no accessory muscle use. Lungs are clear to auscultation bilaterally. Cardiovascular: Regular rate and rhythm, no murmurs, rubs, or gallops. Bilateral carotid, radial, dorsalis pedis, and posterior tibial pulses intact. Good capillary refill all extremities. Gastrointestinal: Abdomen is soft, nontender, non-distended, no masses, no rebound, no guarding, no peritoneal signs. Musculoskeletal: Right ankle clinically shows fracture dislocation with tenting of the skin. Right hand has excellent range of motion and some minor pain to palpation. Normal active ROM of all extremities, atraumatic. Neurological: Alert, appropriate, and interactive. The patient has normal DTRs and non-focal cranial nerves, motor, sensory, and cerebellar exam. Skin: No rashes, good turgor, no nodules on palpation. 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 My interpretation of the images is: no acute process. The radiologist interpretation is pending at the time of this dictation. I have discussed the above x-rays with the radiologist. Right hand x-ray: Right 4th displaced metacarpal fracture Right ankle x-ray: Trimalleolar fracture, evulsion at base of 5th metatarsal. Procedure: Conscious sedation. Indication: Reduction of Fracture Dislocation of Ankle The patient is an appropriate candidate to tolerate procedural sedation. The patient's vitals signs and mental status are appropriate. The risks, benefits and alternatives of the sedation were discussed with the patient. The patient is ASA classification 1. The patient's Mallampati airway score was 1 and the patient did meet the 3-3-2 airway measurements. A time out was completed. The patient was sedated with 75mg IV Propofol. The patient was monitored with continuous pulse oximetry, traffic monitor specialist and end tidal CO2. There were no complications and no significant hypoxemia. I performed both the sedation and the procedure. The total time I spent at the bedside during the procedural sedation was 20 minutes. The patient was examined after the procedural sedation and has returned to their pre-sedation baseline with normal vital signs and a normal examination. Procedure: Reduction of Fracture Dislocation of Ankle Time-out completed immediately before the procedure. IV established. O2 administered. Placed on pulse oximeter and ETCO2 monitor. Neurovascular exam intact pre-procedure. Given 75mg IV Propofol and 100mcg IV Fentanyl for pain and sedation. The right posterior ankle fracture dislocation was reduced using traction. Reassessed post-procedure. Neurovascular status intact-normal Motor and sensory exam. Exam indicated reduction. Confirmed reduction on X-ray. Splint applied by tech. The procedure was performed by myself, Dr. Romeo. Procedure: Splint placement. An orthoglass ulnar gutter splint was applied to the right wrist by the tech. After application of the splint I returned and re-examined the patient. The splint was adequately immobilizing the joint and distal to the splint the patient's circulation and sensation was intact. DIFFERENTIAL DIAGNOSIS: Includes but is not limited to: Fracture, fracture dislocation, dislocation, ligamentous injury, sprain, strain of ankle and hand MEDICAL DECISION MAKING: This patient has an obvious fracture dislocation of her right ankle. I am immediately moving her to the trauma [place] to perform procedural sedation and relocate the ankle. I will obtain x-rays after the relocation takes place and will further treat the patient. 1315: Reassessed patient as she has been moved to trauma room 2. IV still needs to be established. 1320: 75mg IV Propofol and 100mcg IV Fentanyl administered. 1329: Patient's ankle fracture dislocation has been reduced. There is no more tending of the skin. The joint above and below is normal, there is no sign of an open fracture, and there is no evidence of compartment syndrome. 1345: Reassessed patient and reviewed right ankle x-ray at bedside. I believe there is a trimalleolar fracture; official reading still pending. 1400: I reviewed patient's ankle and hand x-rays; radiologist reading still pending. 1405: I spoke with Dr. Russell regarding patient's imaging findings. 1445: Reassessed patient and discussed imaging findings. I have advised her to follow up with an orthopedic surgeon. I have also prescribed her OxyIR for pain. Return precautions provided; patient is comfortable with this plan. 1525: Patient is unable to ambulate with crutches due to her hand fracture. She will need to be hospitalized as she is unsafe to ambulate at home. 1529: I consulted with the hospitalist service regarding this patient, Dr. Meehan accepts admission of this patient. 1550: I consulted with Dr. Siegel, orthopedic surgeon, regarding patient and her admission. He agrees to follow this patient during her admission. - Data Points Medications Given: Discontinued Medications Fentanyl (Sublimaze) 100 mcg IVP EDNOW ONE Stop: 08/01/18 13:32 Last Admin: 08/01/18 13:28 Dose: 100 mcg Propofol (Diprivan) 75 mg IVP EDNOW ONE Stop: 08/01/18 13:32 Last Admin: 08/01/18 13:20 Dose: 75 mg Departure - Departure Disposition: [facility] Inpatient Acute Clinical Impression: Fracture dislocation of ankle Qualifiers: Encounter type: initial encounter Fracture type: closed Laterality: right Qualified Code(s): S82.891A - Other fracture of right lower leg, initial encounter for closed fracture Metacarpal bone fracture Qualifiers: Encounter type: initial encounter Metacarpal bone: fourth Fracture type: closed Metacarpal location: shaft Fracture alignment: displaced Laterality: right Qualified Code(s): S62.324A - Displaced fracture of shaft of fourth metacarpal bone, right hand, initial encounter for closed fracture Trimalleolar fracture of ankle, closed Qualifiers: Encounter type: initial encounter Laterality: right Qualified Code(s): S82.851A - Displaced trimalleolar fracture of right lower leg, initial encounter for closed fracture Condition: Fair Report Scribed for: Bishop Romeo Report Scribed by: Angelica Townsend Date of Report: 08/01/18 Time of Report: 13:41
[2018-08-01] MEDS ORDERED: PROPOFOL 200 MG/20 ML VIAL ONE (13:09)
[2018-08-01] MEDS ORDERED: KETAMINE 200 MG/20 ML VIAL ONE (13:10)
[2018-08-01] MEDS ORDERED: PROPOFOL 200 MG/20 ML VIAL IVP ONE (13:31)
[2018-08-01] MEDS ORDERED: fentaNYL 100 MCG/2 ML INJ IVP ONE (13:31)
[2018-08-01] MEDS ORDERED: oxyCODONE IR 5 MG TAB PO PRN (15:42)
[2018-08-01] MEDS ORDERED: HYDROmorphONE/DILAUDID 1 MG/ML INJ IVP PRN (15:42)
[2018-08-01] MEDS ORDERED: ONDANSETRON 4 MG/2 ML VIAL IVP PRN (15:42)
[2018-08-01] MEDS ORDERED: ONDANSETRON DISINTEGRATING 4 MG TAB PO PRN (15:42)
[2018-08-01] MEDS ORDERED: LACTULOSE 20 GM/30 ML UDCUP PO PRN (15:44)
[2018-08-01] MEDS ORDERED: MAGNESIUM HYDROXIDE 30 ML UDCUP PO PRN (15:44)
[2018-08-01] MEDS ORDERED: BISACODYL 10 MG SUPP PR PRN (15:44)
[2018-08-01] MEDS ORDERED: POLYETHYLENE GLYCOL 3350 17 GM PKT PO PRN (15:44)
--- NOTE | 2018-08-01 15:49 | PDGENHP ---
History and Physical - Chief Complaint Right finger and right ankle fracture - History of Present Illness 68 y/o female presents to the emergency room after sustaining a mechanical fall down her stairs this afternoon. She was caring for her disabled son with bathing; was at the top of the staircase and attempting to mushroom picker a laundry basket, slipped and fell head first down the stairs. She attempted to grab on to something with her right hand. She did hit her head, denies LOC, change of vision, headache, or neck discomfort. Right hand x-ray reveals the fourth metacarpal fracture - no surgery required per Dr. Siegel. Her right ankle x-ray is s/p closed reduction and casting of a trimalleolar fracture that occurred while in the emergency room. This will need surgery and Dr. Siegel will perform this tomorrow morning. She recently had bilateral hip replacement, left was in January 2018 and right was 6-[address] Buchanan. Incision is C/D/I. No hip pain. She is being admitted for surgical intervention and monitoring. Past Medical/Surgical History 1. Arthritis 2. Chronic pain syndrome 3. Glaucoma 4. RBBB 5. Thoracic aortic aneurysm 6. CAD 7. Bilateral hip replacements, right hip replaced approximately 7-8 weeks. Social 1. Retired registered nurse. . 2. Denies tobacco or illicit drug use. Denies alcohol use. History Information - Allergies/Home Medication List Allergies/Adverse Reactions: No Known Allergies Allergy (Verified 06/17/18 12:32) Home Medications: Latanoprost 0.005% [Xalatan 0.005% (*)] 1 drops EACHEYE HS 01/13/18 [Last Taken 07/31/18] Lisinopril [Zestril 5 mg (*)] 5 mg PO DAILY 05/27/18 [Last Taken 08/01/18] Multivitamins [Multivitamin (*)] 1 each PO DAILY 05/27/18 [Last Taken 08/01/18] Famotidine [Pepcid 20 MG (*)] 20 mg PO BID PRN 08/01/18 [Last Taken 07/18/18] Meloxicam [Mobic 15 mg] 15 mg PO DAILY 08/01/18 [Last Taken 08/01/18] I have personally reviewed and updated: family history, medical history, social history, surgical history Past Medical History: See HPI list - Surgical History Reports: appendectomy Additional surgical history: Shoulder surgery. See HPI list - Family History Positive for: cancer, hypertension - Social History Smoking Status: Never smoked Alcohol Use: None Drug Use: None Review of Systems Review of Systems: ROS: 10pt was reviewed & negative except for what was stated in HPI & below Constitutional: Reports: no symptoms EENMT: Reports: no symptoms Cardiac: Reports: no symptoms Respiratory: Reports: no symptoms Gastrointestinal: Reports: no symptoms Genitourinary: Reports: no symptoms Muscolosketal: Reports: joint pain, joint swelling Skin: Reports: no symptoms Neurological: Reports: no symptoms Hematologic/Lymphatic: Reports: no symptoms Immunologic/Allergy: Reports: no symptoms Physical Exam Physical Exam: Imaging reviewed Temp Pulse Resp BP Pulse Ox 37 C 89 18 125/78 H 98 08/01/18 15:40 08/01/18 15:40 08/01/18 15:40 08/01/18 15:40 08/01/18 15:40 Constitutional: no apparent distress, appears nourished, other (Pain managed with PO/IVP pain medication) Eyes: PERRL, anicteric sclera, EOMI Ears, Nose, Mouth, Throat: moist mucous membranes, hearing normal, ears appear normal, no oral mucosal ulcers Cardiovascular: regular rate and rhythym, no murmur, rub, or gallop, No edema Peripheral Pulses: 0: dorsalis-pedis (R) (Unable to palpate pedal and popliteal pulse. Skin warm, sensation intact, cap refill <2 sec, brachial 2+), 2+: dorsalis-pedis (L) (Radial 2+) Respiratory: no respiratory distress, no rales or rhonchi, clear to auscultation Gastrointestinal: normoactive bowel sounds, soft, non-tender abdomen, no palpable masses Genitourinary: no bladder fullness, no bladder tenderness Skin: warm, normal color, no rashes or abrasions, no fluctuance, no induration, No mottled Musculoskeletal: other (RUE: able to wiggle fingers, skin warm, cap refill <2 seconds, RLE: able to wiggle toes, sensation intact, skin warm) Neurologic: AAOx3, sensation intact bilaterally, CN II-XII Intact Psychiatric: interacting appropriately, not anxious, not encephalopathic, thought process linear Lymph, Heme, Immunologic: no cervical LAD, no supraclavicular LAD Lab Data & Imaging Review 08/01/18 16:50 08/01/18 16:50 Assessment & Plan Plan: 68 y/o female with acute fracture of right ankle and right 4th finger. 1. Right Metacarpal bone fracture: No surgical needs for this. It is splinted. Should use platform crutch to use forearm weight instead of hand. 2. Right Trimalleolar fracture of ankle: s/p closed reduction while in the emergency room. Dr. Siegel evaluated pt and she will need surgical intervention which will happen tomorrow morning. Regular diet now, NPO at midnight tonight. CBC/BMP pending. Will repeat labs tomorrow. PO/IVP pain medications PRN. Anti-emetics PRN. PT/OT to evaluate. Bowel regimen. Non-weight bearing status. 3. Glaucoma: she may continue her eye drops latanoprost 4. CAD: Dr. Wade follows pt. She is stable. Holding aspirin tonight and tomorrow morning. Will appreciate ortho recommendation of anti-coagulant. 5. HTN: stable. Holding lisinopril until after procedure tomorrow. Diet: Regular, NPO at midnight tonight. Code: Full VTE ppx: SCD/EZRA compression to LLE Dispo: Admit to inpatient
[2018-08-01] MEDS ORDERED: FAMOTIDINE 20 MG TAB PO PRN (16:33)
--- NOTE | 2018-08-01 16:57 | HOSPPROG ---
Hospitalist Progress Note Assessment/Plan: Patient seen examined discussed w Lucille Barry NP. Agreew plan as outlined. Mechanical; fall w r sided ankle and hand fractures. needs surgery on ankle. Objective: Vital Signs Temp Pulse Resp BP Pulse Ox 37.0 C 66 16 142/88 H 95 08/01/18 16:33 08/01/18 16:33 08/01/18 16:33 08/01/18 16:33 08/01/18 16:33 ICD10 Worksheet Patient Problems: Problems Problem Status Onset Fracture dislocation of ankle Acute Metacarpal bone fracture Acute Trimalleolar fracture of ankle, closed Acute Primary localized osteoarthritis of left hip Acute Primary localized osteoarthritis of right hip Acute
--- NOTE | 2018-08-01 17:28 | PDMN ---
Medical Necessity Medical necessity: Pt meets IP criteria as of 08/01/2018 per [place] and [facility] ( mus[place] disease); est los > 2 mn for ongoing tx and management of trimalleolar fracture s/p mechanical fall; requiring surgical consultation with planned intervention, PT/OT and pain control.
--- NOTE | 2018-08-01 18:13 | GHP ---
DATE OF ADMISSION: 08/01/2018 CHIEF COMPLAINT: Right ankle pain, right hand pain. DIAGNOSIS: 1. Unstable bimalleolar ankle fracture dislocation. 2. Right 4th metacarpal fracture, short oblique. HISTORY OF PRESENT ILLNESS: Flavia is a 68-year-old female, well known to [facility]. Had successful bilateral total hip replacements performed by Dr. Buchanan. 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 Triaged to the emergency room. Hips are feeling okay. She had a fra cture dislocation of the right ankle that was reduced and splinted, as well as a 4th metacarpal fract ure of the right hand with a short oblique that was also splinted. I was asked to consult for inpati ent admission OT/PT and need for surgical intervention. Please see details of ER H and P and admitting H and P. BEDSIDE EXAM: Reveals a well placed splint, mobile toes. Right hand splint, short arm, mobile finge rs. Bilateral hips are pain free. Negative log roll. ABDOMEN: Soft. LEFT UPPER EXTREMITY: Nonte nder, good range of motion. IMAGING: X-rays reviewed showed a right 4th metacarpal fracture, short oblique. Right ankle fracture, well reduced with an oblique distal fibular fracture and a transverse medial ma lleolus fracture with some comminution. IMPRESSION/RECOMMENDATION: Likely nonoperative right 4th metacarpal fracture. Rotation seems to be okay. We will follow this closely over the next couple weeks. Recommend weightbearing through the e lbow and forearm on a platform walker. With regard to the right ankle, recommend operative fixation. She is going to have difficulty at cori e. Recommend fixation during this hospital stay with OT/PT. She is going to be walker toe-touch sandy ghtbearing on that right side for balance. 25 minutes at the bedside. /[id number]/MODL
[2018-08-01] MEDS: LATANOPROST 0.005% 2.5 ML OPHT DROPS EACHEYE SCH (20:51)
[2018-08-01] MEDS: ACETAMINOPHEN 325 MG TAB PO PRN (20:52)
[2018-08-01] MEDS: SENNOSIDES/DOCUSATE SODIUM TAB PO SCH (20:54)
[2018-08-02] MEDS: ACETAMINOPHEN 325 MG TAB PO PRN ×4 (02:37→20:39)
[2018-08-02] MEDS: Meloxicam [Mobic 15 Mg] PO SCH (08:36)
[2018-08-02] MEDS: SENNOSIDES/DOCUSATE SODIUM TAB PO SCH ×2 (08:37→20:30)
[2018-08-02] MEDS ORDERED: ROPIVACAINE HCL 20 MG/10 ML INJ EP ONE (08:44)
[2018-08-02] MEDS ORDERED: LISINOPRIL 5 MG TAB PO SCH (09:00)
[2018-08-02] MEDS ORDERED: ACETAMINOPHEN 325 MG TAB ONE (09:28)
[2018-08-02] MEDS ORDERED: CEFAZOLIN 2 GM/DEXTROSE/100 ML BAG IV ONE (10:08)
[2018-08-02] MEDS ORDERED: LR 1,000 ML IV ONE (10:26)
[2018-08-02] MEDS ORDERED: ceFAZolin 2 GM/DEXTROSE 100 ML IV ONE (10:30)
[2018-08-02] MEDS ORDERED: MIDAZOLAM 2 MG/2 ML VIAL IVP ONE (10:46)
--- NOTE | 2018-08-02 10:47 | PDANEPAE ---
ANE History of Present Illness right ankle ORIF ANE Past Medical History - Cardiovascular History Hx Hypertension: No Hx Arrhythmias: No Hx Chest Pain: No Hx Coronary Artery / Peripheral Vascular Disease: No Hx CHF / Valvular Disease: No Hx Palpitations: No Cardiovascular History Comment: RBBB. Dilated aortic root (<5cm) - Pulmonary History Hx COPD: No Hx Asthma/Reactive Airway Disease: No Hx Recent Upper Respiratory Infection: No Hx Oxygen in Use at Home: No Hx Sleep Apnea: No Sleep Apnea Screening Result - Last Documented: Negative - Neurologic History Hx Cerebrovascular Accident: No Hx Seizures: No Hx Dementia: No - Endocrine History Hx Diabetes: No Obesity: no - Renal History Hx Renal Disorders: No - Liver History Hx Hepatic Disorders: No - Neurological & Psychiatric Hx Hx Neurological and Psychiatric Disorders: No - Cancer History Hx Cancer: No - Congenital Disorder History Hx Congenital Disorders: No Congenital History Comment: RBBB - GI History Hx Gastrointestinal Disorders: No - Other Health History Other Health History: GLAUCOMA - Chronic Pain History Chronic Pain: Yes (RT HIP,DOWN FRONT OF RT LEG) - Surgical History Prior Surgeries: none in last 10yrs ANE Review of Systems Review of systems is: negative Review of Systems: - Exercise capacity Exercise capacity: >=4 METS ANE Patient History - Allergies Allergies/Adverse Reactions: No Known Allergies Allergy (Verified 08/02/18 09:10) - Home Medications Home medications: home medication list seen and reviewed Home Medications: Latanoprost 0.005% [Xalatan 0.005% (*)] 1 drops EACHEYE HS 01/13/18 [Last Taken 07/31/18] Lisinopril [Zestril 5 mg (*)] 5 mg PO DAILY 05/27/18 [Last Taken 08/01/18] Multivitamins [Multivitamin (*)] 1 each PO DAILY 05/27/18 [Last Taken 08/01/18] Famotidine [Pepcid 20 MG (*)] 20 mg PO BID PRN 08/01/18 [Last Taken 07/18/18] Meloxicam [Mobic 15 mg] 15 mg PO DAILY 08/01/18 [Last Taken 08/01/18] - NPO status NPO Since - Liquids (Date): 08/02/18 NPO Since - Liquids (Time): 02:30 NPO Since - Solids (Date): 12/31/18 NPO Since - Solids (Time): 18:30 - Anes Hx Anes Hx: no prior problems - Smoking Hx Smoking Status: Never smoked - Alcohol Use Alcohol Use: None - Family Anes Hx Family Hx Anesthesia Complications: father had vomiting issues ANE Labs/Vital Signs - Labs Result Diagrams: 08/02/18 04:18 08/02/18 04:18 - Vital Signs Blood Pressure: 140/76 Heart Rate: 76 Respiratory Rate: 16 O2 Sat (%): 99 Height: 175.26 cm Weight: 81.647 kg ANE Physical Exam - Airway Neck exam: FROM Mallampati Score: Class 1 Mouth exam: normal dental/mouth exam - Pulmonary Pulmonary: no respiratory distress - Cardiovascular Cardiovascular: regular rate and rhythym - ASA Status ASA Status: II, E ANE Anesthesia Plan Anesthesia Plan: GA w LMA Regional Anesthesia: single shot NB, adductor canal FNB, popliteal SNB
[2018-08-02] MEDS ORDERED: PROPOFOL 200 MG/20 ML VIAL ONE (11:05)
[2018-08-02] MEDS ORDERED: fentaNYL 100 MCG/2 ML INJ ONE ×2 (11:05→13:00)
[2018-08-02] MEDS ORDERED: LIDOCAINE 2% 5 ML SDV ONE (11:07)
[2018-08-02] MEDS ORDERED: DEXAMETHASONE 4 MG/ML VIAL ONE (11:11)
[2018-08-02] MEDS ORDERED: ONDANSETRON 4 MG/2 ML VIAL ONE (11:11)
[2018-08-02] MEDS ORDERED: KETOROLAC 30 MG/1 ML SDV ONE (11:11)
[2018-08-02] MEDS ORDERED: ROPIVACAINE HCL 150 MG/30 ML INJ ONE (11:11)
--- NOTE | 2018-08-02 11:17 | POSTANESTH ---
Post Anesthetic Evaluation Cardiovascular Status: Normal, Stable Respiratory Status: Normal, Stable Level of Consciousness/Mental Status: Can Participate in Eval, Alert and Oriented Pain Control: Adequate, Prn Tx Ordered Nausea/Vomiting Control: Adequate, Prn Tx Ordered Complications Possibly Related to Anesthesia: None Noted
[2018-08-02] MEDS ORDERED: MIDAZOLAM 2 MG/2 ML VIAL ONE (11:27)
[2018-08-02] MEDS ORDERED: HYDROCODONE/APAP 5/325 TAB PO PRN ×2 (12:43→13:14)
[2018-08-02] MEDS ORDERED: OXYCODONE/APAP 5/325 TAB PO PRN (12:43)
[2018-08-02] MEDS ORDERED: D5W 1/2 NS W/ 20 KCl/L 1,000 ML IV SCH (12:45)
--- NOTE | 2018-08-02 12:56 | GOP ---
DATE OF OPERATION: SURGEON: Satnam Siegel MD PREOPERATIVE DIAGNOSIS: Unstable bimalleolar ankle fracture, right side. POSTOPERATIVE DIAGNOSIS: Unstable bimalleolar ankle fracture, right side. PROCEDURE PERFORMED: 1. Open reduction, internal fixation of bimalleolar ankle fracture. 2. Intraoperative fluoroscopy interpreted by surgeon. FINDINGS: ESTIMATED BLOOD LOSS: Minimal. INDICATIONS: 68-year-old female who had successful bilateral hip replacements by Dr. Buchanan. She had a fall, sustained a right hand fracture and an unstable bimalleolar ankle fracture dislocation. Reduced in the ER, presents for operative fixation of the ankle. DESCRIPTION OF PROCEDURE: The patient identified in the preoperative holding area. Consent laterali ty and preoperative antibiotics were confirmed and delivered. All questions were answered. The patient brought into the operating room, well-padded OR table. Anesthesia performed a popliteal and saphenous nerve block by ultrasound. General anesthesia. A right greater trochanteric bump was used. A right thigh tourniquet was placed. Total tourniquet t so was 35 minutes. Esmarch exsanguination. Surgical time-out. A standard lateral-based incision was made. The fracture was identified. Pointed reduction clamps f or provisional reduction. We placed a lag screw across the fracture site. I then chose an 8 hole ne utralization plate. Attention was then turned to the medial side. A longitudinal incision was made. Cauterized the supe rficial veins. The fracture was identified, reduced, 2 pins were placed. Fluoroscopic views confirm nice placement and 2 cannulated 3.5 mm screws were placed after drilling. The wounds were copiously washed out with 200 cc of warm normal saline. 3-0 Monocryl for closure and nicole. 10 cc of 0.2% ropivacaine were injected throughout the incisions. Xeroform, 4 x 4's, and a well-padded AO splint were placed. IMPLANTS USED: 8 hole 1/3 tubular locking plate on the fibula and then two 3.5 mm cannulated screws on the medial malleolar side. COMPLICATIONS: None. TOTAL TOURNIQUET TIME: 35 minutes. DISPOSITION: Extubated and went to PACU in stable condition. /[id number]/MODL
--- NOTE | 2018-08-02 12:57 | HOSPPROG ---
Hospitalist Progress Note Assessment/Plan: 68 y/o female with acute fracture of right ankle and right 4th finger. First encounter, chart reviewed. #Right Metacarpal bone fracture: -No surgical needs for this. -It is splinted. -Should use platform crutch to use forearm weight instead of hand. #Right Trimalleolar fracture of ankle: - s/p closed reduction while in the emergency room. - Dr. Siegel surgical intervention today #Pain -PO/IVP pain medications PRN. -Anti-emetics PRN. #Mechanical fall #Glaucoma: -she may continue her eye drops latanoprost #CAD: - Dr. Wade follows pt. - Holding aspirin - appreciate ortho recommendation of anti-coagulant. #HTN: -stable. -Holding lisinopril until after procedure Diet: Regular Code: Full VTE ppx: SCD/EZRA compression to LLE Dispo: Admit to inpatient Subjective: Tired. No pain. Objective: Vital Signs Temp Pulse Resp BP Pulse Ox 36.6 C 76 16 140/76 H 99 08/02/18 10:15 08/02/18 10:47 08/02/18 10:47 08/02/18 10:47 08/02/18 10:47 Laboratory Results 08/02/18 04:18 08/02/18 04:18 08/01/18 08/02/18 08/03/18 05:59 05:59 05:59 Output Total 1950 200 Balance -1950 -200 - Physical Exam Constitutional: no apparent distress, appears nourished, not in pain Eyes: PERRL, anicteric sclera, EOMI Ears, Nose, Mouth, Throat: moist mucous membranes, hearing normal, ears appear normal Cardiovascular: regular rate and rhythym, No JVD, No edema Respiratory: no respiratory distress, no rales or rhonchi, reduced air movement Gastrointestinal: No tenderness, No ascites, No distension Skin: warm, normal color, No mottled Musculoskeletal: joint tenderness, pain with ROM, generalized weakness Psychiatric: not anxious, thought process linear, poor insight, poor memory ICD10 Worksheet Patient Problems: Problems Problem Status Onset Fracture dislocation of ankle Acute Metacarpal bone fracture Acute Trimalleolar fracture of ankle, closed Acute Primary localized osteoarthritis of right hip Acute Primary localized osteoarthritis of left hip Acute
[2018-08-02] MEDS: fentaNYL 100 MCG/2 ML INJ IVP PRN ×2 (13:03→13:42)
[2018-08-02] MEDS ORDERED: NALOXONE HCL 0.4 MG/ML INJ IVP PRN (13:14)
[2018-08-02] MEDS ORDERED: PROMETHAZINE HCL 25 MG/ML INJ IVP PRN (13:14)
[2018-08-02] MEDS ORDERED: ALBUTEROL 3 ML DEYVIAL IH PRN (13:14)
[2018-08-02] MEDS ORDERED: ONDANSETRON 4 MG/2 ML VIAL IVP PRN (13:14)
[2018-08-02] MEDS ORDERED: ACETAMINOPHEN 500 MG TAB PO PRN (13:14)
[2018-08-02] MEDS ORDERED: HYDROmorphONE/DILAUDID 2 MG/ML INJ IVP PRN (13:14)
[2018-08-02] MEDS ORDERED: METOCLOPRAMIDE 10 MG/2 ML VIAL IVP PRN (13:14)
[2018-08-02] MEDS ORDERED: oxyCODONE IR 5 MG TAB PO PRN (13:14)
--- NOTE | 2018-08-02 13:54 | ASMTCMCOM ---
CM Note CM Note Notes: Pt is a 68 y/o female admitted for a right finger and ankle fracture. Pt is having surgery today. Therapies have been ordered and awaiting recommendations. Needs are TBD at this time. CM to follow. Plan: TBD Date Signed: 08/02/2018 01:53 PM Electronically Signed By:NITZA Hussein
[2018-08-02] MEDS: LATANOPROST 0.005% 2.5 ML OPHT DROPS EACHEYE SCH (20:31)
[2018-08-03] MEDS: ENOXAPARIN 40 MG/0.4 ML SYR SC SCH (09:46)
[2018-08-03] MEDS: SENNOSIDES/DOCUSATE SODIUM TAB PO SCH ×2 (09:47→20:25)
[2018-08-03] MEDS: Meloxicam [Mobic 15 Mg] PO SCH (10:01)
--- NOTE | 2018-08-03 13:20 | HOSPPROG ---
Hospitalist Progress Note Assessment/Plan: 68 y/o female with acute fracture of right ankle and right 4th finger. #Right Metacarpal bone fracture: -No surgical needs for this. -splinted. -Should use platform crutch to use forearm weight instead of hand. #Right Trimalleolar fracture of ankle: - s/p closed reduction while in the emergency room. - Dr. Siegel surgical intervention POD #1 -TTWB #Pain -PO/IVP pain medications PRN. -Anti-emetics PRN. #Mechanical fall #Glaucoma: -she may continue her eye drops latanoprost #CAD: - Dr. Wade follows pt. - Holding aspirin - appreciate ortho recommendation of anti-coagulant. #HTN: -stable. -restart lisinopril Diet: Regular Code: Full VTE ppx: SCD/EZRA compression to LLE Dispo: Admit to inpatient -will need SNF for short stay Subjective: Feeling ok. Still tired. Some pain. Objective: Vital Signs Temp Pulse Resp BP Pulse Ox 36.8 C 65 16 120/72 96 08/03/18 12:00 08/03/18 12:00 08/03/18 12:00 08/03/18 12:00 08/03/18 12:00 Laboratory Results 08/03/18 04:23 08/03/18 04:23 08/02/18 08/03/18 08/04/18 05:59 05:59 05:59 Intake Total 1280 Output Total 1950 1500 250 Balance -1950 -220 -250 - Physical Exam Constitutional: no apparent distress, appears nourished, not in pain Eyes: PERRL, anicteric sclera, EOMI Ears, Nose, Mouth, Throat: moist mucous membranes, hearing normal, ears appear normal Cardiovascular: regular rate and rhythym, No JVD, No edema Respiratory: no respiratory distress, no rales or rhonchi, reduced air movement Gastrointestinal: normoactive bowel sounds, No tenderness, No ascites Skin: warm, normal color, No mottled Musculoskeletal: joint tenderness, pain with ROM, generalized weakness Neurologic: AAOx3 Psychiatric: interacting appropriately, not anxious, not encephalopathic ICD10 Worksheet Patient Problems: Problems Problem Status Onset Fracture dislocation of ankle Acute Metacarpal bone fracture Acute Trimalleolar fracture of ankle, closed Acute Primary localized osteoarthritis of right hip Acute Primary localized osteoarthritis of left hip Acute
[2018-08-03] MEDS: ACETAMINOPHEN 325 MG TAB PO SCH ×3 (13:25→23:31)
--- NOTE | 2018-08-03 14:04 | ASMTCMCOM ---
CM Note CM Note Notes: PT rec SNF, pt chooses [facility]. Eleonora with [facility] visits with pt and sent MAR to determine non-formulary med. D/c plan of care: [facility] Date Signed: 08/03/2018 02:04 PM Electronically Signed By:FRIDA Gonzalez
[2018-08-03] MEDS: ASPIRIN 81 MG CHEWABLE TAB PO SCH (20:25)
[2018-08-03] MEDS: LATANOPROST 0.005% 2.5 ML OPHT DROPS EACHEYE SCH (20:31)
[2018-08-04] MEDS: ACETAMINOPHEN 325 MG TAB PO SCH ×2 (05:23→13:29)
[2018-08-04 07:40] VITALS: BP 136/65
[2018-08-04] MEDS: ENOXAPARIN 40 MG/0.4 ML SYR SC SCH (08:28)
[2018-08-04] MEDS: ASPIRIN 81 MG CHEWABLE TAB PO SCH (08:28)
[2018-08-04] MEDS: SENNOSIDES/DOCUSATE SODIUM TAB PO SCH (08:28)
[2018-08-04] MEDS: Meloxicam [Mobic 15 Mg] PO SCH (08:29)
[2018-08-04] MEDS ORDERED: MULTIVITAMINS 1 EACH TAB PO SCH (09:00)
--- NOTE | 2018-08-04 09:07 | HOSPPROG ---
Hospitalist Progress Note Assessment/Plan: 8 y/o female with acute fracture of right ankle and right 4th finger. #Right Metacarpal bone fracture: -No surgical needs for this. -splinted. -Should use platform crutch to use forearm weight instead of hand. #Right Trimalleolar fracture of ankle: - s/p closed reduction while in the emergency room. - Dr. Siegel surgical intervention POD #2 -TTWB -has a f/u appt w Dr Siegel #Pain -PO/IVP pain medications PRN. -Anti-emetics PRN. #Mechanical fall #Glaucoma: -she may continue her eye drops latanoprost #CAD: - Dr. Wade follows pt. - Holding aspirin -hx of RBBB #HTN: -stable. -restart lisinopril #DVT prophylaxis: LMWH Subjective: Flavia feels fine, no c/o pain. Objective: Vital Signs Temp Pulse Resp BP Pulse Ox 36.6 C 55 L 16 136/65 H 94 08/04/18 07:37 08/04/18 07:37 08/04/18 07:37 08/04/18 08:29 08/04/18 07:37 Laboratory Results 08/03/18 04:23 08/03/18 04:23 08/03/18 08/04/18 08/05/18 05:59 05:59 05:59 Intake Total 1280 450 Output Total 1500 1250 Balance -220 -800 - Physical Exam Constitutional: no apparent distress, appears nourished, not in pain Eyes: PERRL Ears, Nose, Mouth, Throat: hearing normal Cardiovascular: regular rate and rhythym Respiratory: no respiratory distress Gastrointestinal: normoactive bowel sounds Skin: warm Musculoskeletal: generalized weakness, other (right hand in splint, right lower ext in splint) Neurologic: AAOx3 ICD10 Worksheet Patient Problems: Problems Problem Status Onset Fracture dislocation of ankle Acute Metacarpal bone fracture Acute Trimalleolar fracture of ankle, closed Acute Primary localized osteoarthritis of left hip Acute Primary localized osteoarthritis of right hip Acute
--- NOTE | 2018-08-04 09:55 | PDIAF ---
- Diagnosis Diagnosis: right trimalleolar fx Code Status: Full Code - Medication Management Discharge Medications: electronically signed and located in the Home Medication List. - Orders Diet Recommendation: no restrictions on diet Diet Texture: Regular Texture Diet Additional Instructions: 1. Take OxyIR as prescribed. 2. Rest, ice, elevation. 3. Follow up with an orthopedic surgeon within one week. 4. Return to the emergency department for worsening pain, swelling, numbness, weakness or other concerns. 5. Wear splint at all times until reevaluation. - Follow Up Care Current Providers and Referrals: Satnam Siegel MD [Medical Doctor] - 08/09/18 3:30 am
--- NOTE | 2018-08-04 10:43 | ASMTDCNOTE ---
Case Management Discharge Discharge Order Complete? Answers: Yes Patient to Obtain Answers: Other Notes: [facility] to Arrange Medications Transport. Transportation Arranged Answers: Other Notes: [facility] to arrange transport Faxed Final Orders Answers: Yes Agency/Facility Transfer Answers: Yes Report Printed & Faxed to Receiving Agency Family Notified Answers: Yes Discharge Comments Notes: Pt being discharged to [facility]. Milo in the room. Agreeable to discharge plans. Transportation scheduled for 1130. No other CM needs identified. Date Signed: 08/04/2018 10:42 AM Electronically Signed By:NITZA Zuluaga
--- NOTE | 2018-08-04 10:47 | ASDISCHSUM ---
Discharge Information Plan Status:SNF Medically Cleared to Leave:08/03/2018 Discharge Date:08/03/2018 CM D/C Disposition:Halfway Facility ADT D/C Disposition:Halfway Facility Projected Discharge Date:08/04/2018 11:00 AM Transportation at D/C:Wheelchair Van Discharge Delay Reason: Follow-Up Date:08/04/2018 11:00 AM Discharge Slot: Final Diagnosis: Placement Information Referral Type:*Retirement/SNF Referral ID:[id number] Provider Name:[facility] Address 1:[address] Address 2: City:[place] Selection Factors: State:[place] Patient Contact Information Contact Name:ANGEL Relationship: Address:[address] City:[place] Alternate Phone: State/Zip Code:[place] [address] Email: Financial Information Financial Class:Medicare Primary Plan Desc:MEDICARE INPATIENT Primary Plan Number:[id number] Secondary Plan Desc:[employer] Secondary Plan Number:[id number] Assessment Information [facility] CM Progress Note CM Note CM Note Notes: Pt is a 68 y/o female admitted for a right finger and ankle fracture. Pt is having surgery today. Therapies have been ordered and awaiting recommendations. Needs are TBD at this time. CM to follow. Plan: TBD Date Signed: 08/02/2018 01:53 PM Electronically Signed By:NITZA Hussein BC CM Progress Note CM Note CM Note Notes: PT rec SNF, pt chooses [facility]. Eleonora with [facility] visits with pt and sent MAR to determine non-formulary med. D/c plan of care: [facility] Date Signed: 08/03/2018 02:04 PM Electronically Signed By:FRIDA Gonzalez Case Management Discharge Plan Note Case Management Discharge Discharge Order Complete? Answers: Yes Patient to Obtain Answers: Other Notes: [facility] to Arrange Medications Transport. Transportation Arranged Answers: Other Notes: [facility] to arrange transport Faxed Final Orders Answers: Yes Agency/Facility Transfer Answers: Yes Report Printed & Faxed to Receiving Agency Family Notified Answers: Yes Discharge Comments Notes: Pt being discharged to [facility]. Milo in the room. Agreeable to discharge plans. Transportation scheduled for 1130. No other CM needs identified. Date Signed: 08/04/2018 10:42 AM Electronically Signed By:NITZA Zuluaga Intervention Information Intervention Type:*Incorrect Registration Date of Service:08/01/2018 05:19 PM Patient Type:Inpatient Staff Member:Jinny Bailey Hours: Discipline: Severity: Comment:
--- NOTE | 2018-08-04 12:56 | SOAPPROG ---
SOAP Progress Note Assessment/Plan: Assessment: Plan: Objective: Vital Signs Temp Pulse Resp BP Pulse Ox 36.6 C 55 L 16 136/65 H 94 08/04/18 07:37 08/04/18 07:37 08/04/18 07:37 08/04/18 08:29 08/04/18 07:37 Laboratory Results 08/03/18 04:23 08/03/18 04:23 08/03/18 08/04/18 08/05/18 05:59 05:59 05:59 Intake Total 1280 450 Output Total 1500 1250 700 Balance -220 -800 -700 ICD10 Worksheet Patient Problems: Problems Problem Status Onset Fracture dislocation of ankle Acute Metacarpal bone fracture Acute Trimalleolar fracture of ankle, closed Acute Primary localized osteoarthritis of left hip Acute Primary localized osteoarthritis of right hip Acute
--- NOTE | 2018-08-04 17:01 | GDS ---
DISCHARGE DIAGNOSES: 1. Right metacarpal bone fracture. 2. Right trimalleolar fracture of the ankle. 3. Pain due to this. 4. Mechanical fall. 5. Glaucoma. 6. Coronary artery disease. 7. Hypertension. CONSULTATION: Dr. Satnam Siegel. HISTORY: Briefly, the patient is a 68-year-old woman who has a history of bilateral hip replacements . She was caring for her disabled son earlier that day. She was at the top of the staircase and att empting to picker packer a laundry basket and slipped and fell down the stairs. She attempted to grab on s omething, and she hit her right hand. It was noted that she had a 4th metacarpal fracture, and no solis rgery was required. It was also noted that she had a trimalleolar fracture that occurred while this occurred. She had a closed reduction and casting done. She will further follow up in the outpatient setting. She will go to rehab for approximately a week for strengthening. HOSPITAL COURSE: 1. Right metacarpal bone fracture. No surgical need for this. It is splinted. She will need to us e a platform crutch. 2. Right trimalleolar fracture of the ankle. She is status post a closed reduction and surgical int ervention with Dr. Siegel. She can be toe-touch weightbearing. She has already made a followup appoin tment with Dr. Siegel. 3. Pain, well managed. 4. Mechanical fall, seeing PT and OT. 5. Glaucoma. She uses eyedrops for this. 6. Coronary artery disease. Resumed her aspirin. She has a history of a right bundle branch block. 7. Hypertension, on lisinopril. DISCHARGE CONDITION: Stable. Blood pressure is 136/65, heart rate 55, respiratory rate of 16, O2 sa ts on room air 94%, temperature 36.6 Celsius. DISCHARGE MEDICATIONS: Please see the EMR. DISCHARGE INSTRUCTIONS: 1. To follow up with Dr. Siegel. She has an appointment on Wednesday at 3:30 for followup. 2. If she develops fever, chills, worsening pain, to return to the ER. Greater than 30 minutes discharging and coordinating her care. /[id number]/MODL
== END 2018-08-04 14:57 | DRG 494 ==
LOC: EDUNIT# → OBSVTOIN 15:44 → F3N 16:03
PROVIDERS: ADMIT Internal Medicine; ATTEND Internal Medicine
PROC: 0QSGXZZ Reposition Right Tibia, External Approach (ICD-10-PCS; 2018-08-01)
PROC: 2W3CX1Z Immobilization of Right Lower Arm using Splint (ICD-10-PCS; 2018-08-01)
PROC: 0QSG04Z Reposition Right Tibia with Internal Fixation Device, Open Approach (ICD-10-PCS; principal; 2018-08-02 09:30)
DX: S82.851A Displaced trimalleolar fracture of right lower leg, initial encounter for closed fracture (principal); S62.324A Displaced fracture of shaft of fourth metacarpal bone, right hand, initial encounter for closed fracture; I25.10 Atherosclerotic heart disease of native coronary artery without angina pectoris; G89.4 Chronic pain syndrome; Z96.643 Presence of artificial hip joint, bilateral
CPT/HCPCS: 92523-GN; 96374; 97116-GP; 97162-GP; 97166-GO; 97530-GP; 97535-GO; C1713; C1769; G8987-GO-CL; G8988-GO-CI; J0690; J1100; J1650; J1885; J2250; J2405; J2704; J2795; J3010